=== PATIENT | female | born 1975 | race Caucasian/White ===

== ENCOUNTER → 2018-09-14 | Outpatient (CLI) | payer OTHER ==
--- NOTE | 2018-09-14 10:06 | RAD ---
Abdominal ultrasound, 09/14/2018: HISTORY: Nausea, vomiting, weight loss The gallbladder is within normal limits in size. There is no sonographic evidence of cholelithiasis. The common hepatic duct is of normal caliber. There is no evidence of a hepatic mass. The visualized portions of the pancreas, spleen and left kidney are unremarkable. There is slight prominence of the right renal pelvis without definite hydronephrosis. This can be seen after prior pregnancies. The abdominal aorta and inferior vena cava show no abnormality. No free fluid is evident in the pelvis. IMPRESSION: 1. Slight prominence of the right renal pelvis. 2. The abdominal ultrasound is otherwise unremarkable. Electronically signed by: Jon Thomas MD (09/14/2018 10:03 AM) [facility]
== END | disposition home or self-care (01) ==
LOC: US 09:00
PROVIDERS: ATTEND Family Medicine
DX: R10.30 Lower abdominal pain, unspecified (principal); R63.4 Abnormal weight loss; R11.2 Nausea with vomiting, unspecified
CPT/HCPCS: 76700

== ENCOUNTER → 2019-01-04 | Outpatient (CLI) | payer OTHER ==
--- NOTE | 2019-01-04 11:45 | RAD ---
Indication: Pelvic pain TECHNIQUE: Grayscale, color Doppler and spectral waveform images of the pelvis COMPARISON: None FINDINGS: Anteverted uterus measuring 6.6 x 1.7 x 3.2 cm. Endometrial stripe measures 2 mm in thickness and is within normal limits. Left ovary measures 2.7 x 2.1 x 3.4 cm with multiple follicles, dominant follicle or simple single septated cyst measuring 1.5 cm. The left ovary demonstrates blood flow. Right ovary measures 1.7 x 2.1 x 2.1 cm and shows blood flow. No free pelvic fluid. IMPRESSION: Dominant follicle or simple single septated left ovarian cyst (1.5 cm). Both ovaries show evidence of blood flow. Electronically signed by: Arpan Reno DO (01/04/2019 11:42 AM) [facility]
== END | disposition home or self-care (01) ==
LOC: US 08:52
PROVIDERS: ATTEND Family Medicine
DX: N83.202 Unspecified ovarian cyst, left side (principal)
CPT/HCPCS: 76830

== ENCOUNTER 2020-04-06 12:08 | Emergency (ER) | payer SELFPAY ==
[~2020-04-06] VITALS: Ht 165.1 cm; Wt 51.6 kg
--- NOTE | 2020-04-06 12:51 | PHYS DOC ---
General Adult EDM: Chief Complaint: ABDOMINAL PAIN HPI: HPI: 44-year-old female presents with abdominal pain. The patient has had abdominal pain since Monday. She is also had multiple episodes of vomiting. She is unable to keep down liquids or solids at this time. The pain in her abdomen has increased to be severe. She describes it as a constant cramping sensation. The patient has been having intermittent abdominal pain issues and has been seen by another physician. No conclusions have been drawn yet. She does have known peptic ulcer disease in the past. Colonoscopy from a year ago was reportedly negative. She denies fever or chills. Review of Systems: Review of Systems: Constitutional: Denies fever or chills Eyes: Denies change in visual acuity HENT: Denies nasal congestion or sore throat Respiratory: Denies cough or shortness of breath Cardiovascular: Denies chest pain or edema GI: abdominal pain, nausea, vomiting. Denies bloody stools or diarrhea. : Denies dysuria Musculoskeletal: Denies back pain or joint pain Integument: Denies rash Neurologic: Denies headache, focal weakness or sensory changes Endocrine: Denies polyuria or polydipsia Lymphatic: Denies swollen glands Psychiatric: Denies depression or anxiety Allergies: Allergies: Allergies Coded Allergies Type Severity Reaction Last Updated Verified verapamil Allergy Unknown 04/06/20 Yes Physical Exam: PE: Constitutional: Well developed, well nourished, no acute distress, non-toxic appearance. [] HENT: Normocephalic, atraumatic, bilateral external ears normal, oropharynx moist, no oral exudates, nose normal. [] Eyes: PERRLA, EOMI, conjunctiva normal, no discharge. [] Neck: Normal range of motion, no tenderness, supple, no stridor. [] Cardiovascular:Heart rate regular rhythm, no murmur [] Lungs & Thorax: Bilateral breath sounds clear to auscultation [] Abdomen: Bowel sounds normal, soft, left lower quadrant tenderness, no masses, no pulsatile masses. [] Skin: Warm, dry, no erythema, no rash. [] Back: No tenderness, no CVA tenderness. [] Extremities: No tenderness, no cyanosis, no clubbing, ROM intact, no edema. [] Neurologic: Alert and oriented X 3, normal motor function, normal sensory function, no focal deficits noted. [] Psychologic: Affect normal, judgement normal, mood normal. [] EKG: EKG: [] Radiology/Procedures: Radiology/Procedures: [] Impressions: CT abdomen and pelvis with contrast History: Left lower quadrant pain, diverticulitis Technique: After the administration of intravenous contrast, CT imaging was performed of the abdomen and pelvis. No oral contrast was given. Multiplanar images are reviewed. Exposure: One or more of the following individualized dose reduction techniques were utilized for this examination: 1. Automated exposure control 2. Adjustment of the mA and/or kV according to patient size 3. Use of iterative reconstruction technique. Comparison: None Findings: There is some motion degradation. There is no significant abnormality of the visualized lung bases. There is no significant abnormality of the liver, spleen, pancreas, adrenal glands. Both kidneys enhance without hydronephrosis. There are a couple of likely small calcifications of the right kidney about 2 to 3 mm. Gallbladder is present without obvious intraluminal abnormality by CT. Accurate evaluation of bowel is limited without oral contrast. There is no significant inflammatory change adjacent to the bowel. There is no evidence of bowel obstruction, free fluid, or free air. There is mild sigmoid diverticulosis, no convincing significant wall thickening. There is likely visualization of small caliber appendix, no significant pericecal inflammatory change. There is a hypodense left adnexal lesion about 1.2 cm in size with peripheral hyperdensity or enhancement. Impression: 1. There are couple of likely small right renal calculi. 2. Hypodense left adnexal lesion is most likely partially collapsed cyst unless clinical suspicion for tubo-ovarian abscess. 3. There is mild sigmoid diverticulosis. Electronically signed by: Shamar De La Torre MD (04/06/2020 1:22 PM) [facility] Exam: Ultrasound pelvis Indication: Possible cyst on CT Technique: Real-time grayscale and color Doppler images of the pelvis were obtained by the department supervisor pumping. Comparisons: CT same day FINDINGS: Uterus measures 4.5 x 3.7 x 2.5 cm. Endometrium is incompletely visualized on ultrasound. Right ovary measures 1.8 x 2.2 x 1.4 cm. Left ovary measures 3.6 x 2.9 x 2.8 cm. Within the left ovary there is a 1.4 cm cystic lesion may represent collapsing cyst. Vascular flow identified within the ovaries bilaterally. No free fluid. IMPRESSION: 1. Cystic lesion seen in the left adnexa on recent CT likely relates to a collapsing ovarian cyst. 2. Supervisor Shearing may note of tubular structures in the bilateral adnexa, may relate to reflection of the broad ligament. No free fluid is seen, and no correlate on recent CT to suggest pyosalpinx. Correlate with symptomatology and physical exam. Electronically signed by: Kellie Feng MD (04/06/2020 3:09 PM) [facility] DICTATED AND SIGNED BY: KELLIE FENG MD DATE: 04/06/20 1509 CC: ANTONIO STARK DO; PCP,NO ~ DICTATED AND SIGNED BY: SHAMAR DE LA TORRE MD DATE: 04/06/20 1322 CC: ANTONIO STARK DO; PCP,NO ~ Heart Score: Risk Factors: Risk Factors: DM, Current or recent (<one month) smoker, HTN, HLP, family history of CAD, obesity. Risk Scores: Score 0 - 3: 2.5% MACE over next 6 weeks - Discharge Home Score 4 - 6: 20.3% MACE over next 6 weeks - Admit for Clinical Observation Score 7 - 10: 72.7% MACE over next 6 weeks - Early Invasive Strategies Course & Med Decision Making: Course & Med Decision Making Pertinent Labs and Imaging studies reviewed. (See chart for details) The patient CT shows diverticulosis without diverticulitis. It also shows likel y involuting ovarian cyst. I will order pelvic ultrasound for clarification. The patient's labs are essentially unremarkable. She does have a low potassium of 3.3. See labs for more details. Her urine drug screen is positive for opiates benzodiazepines and marijuana. [] Dragon Disclaimer: Dragon Disclaimer: This electronic medical record was generated, in whole or in part, using a voice recognition dictation system. Departure Departure: Impression: Primary Impression: Abdominal pain Qualified Codes: R10.30 - Lower abdominal pain, unspecified Additional Impression: Ovarian cyst, left Disposition: 01 DC HOME SELF CARE/HOMELESS Condition: STABLE Referrals: PCP,SOFYA (PCP) Patient Instructions: Abdominal Pain, Women, Ovarian Cyst, [id number] ANTONIO STARK DO Apr 06, 2020 12:51
[2020-04-06] MEDS ORDERED: IOHEXOL 300 MG/ML 75 ML VIAL. IV ONE (13:00)
[2020-04-06] MEDS ORDERED: ONDANSETRON PF 4 MG/2 ML VIAL. IVP ONE (13:00)
[2020-04-06] MEDS ORDERED: MORPHINE SULFATE 2 MG/ML DISP.SYRIN. IV ONE (13:00)
[2020-04-06 13:04] LABS: BASO % 0 % (0-3); EOS % 0 % (0-3); HEMATOCRIT 45.1 % (36.0-47.0); HEMOGLOBIN 15.2 g/dL (12.0-15.5); LYMPH # 1.1 x10^3/uL (1.0-4.8); LYMPH % 16 % (24-48); MEAN CORPUSCULAR HEMOGLOBIN 31 pg (25-35); MEAN CORPUSCULAR HGB CONC 34 g/dL (31-37); MEAN CORPUSCULAR VOLUME 93 fL (79-100); MONO # 0.5 x10^3/uL (0.0-1.1); MONO % 7 % (0-9); NEUT # 5.3 x10^3uL (1.8-7.7); NEUT % 76 % (31-73); PLATELET COUNT 280 x10^3/uL (140-400); RED BLOOD COUNT 4.85 x10^6/uL (3.50-5.40); RED CELL DISTRIBUTION WIDTH 13.1 % (11.5-14.5)
[2020-04-06 13:10] LABS: CALCIUM 9.6 mg/dL (8.5-10.1); POTASSIUM 3.3 mmol/L (3.5-5.1)
[2020-04-06 13:16] LABS: ALBUMIN 4.7 g/dL (3.4-5.0); ALBUMIN/GLOBULIN RATIO 1.3 (1.0-1.7); TOTAL PROTEIN 8.3 g/dL (6.4-8.2)
--- NOTE | 2020-04-06 13:25 | RAD ---
CT abdomen and pelvis with contrast History: Left lower quadrant pain, diverticulitis Technique: After the administration of intravenous contrast, CT imaging was performed of the abdomen and pelvis. No oral contrast was given. Multiplanar images are reviewed. Exposure: One or more of the following individualized dose reduction techniques were utilized for this examination: 1. Automated exposure control 2. Adjustment of the mA and/or kV according to patient size 3. Use of iterative reconstruction technique. Comparison: None Findings: There is some motion degradation. There is no significant abnormality of the visualized lung bases. There is no significant abnormality of the liver, spleen, pancreas, adrenal glands. Both kidneys enhance without hydronephrosis. There are a couple of likely small calcifications of the right kidney about 2 to 3 mm. Gallbladder is present without obvious intraluminal abnormality by CT. Accurate evaluation of bowel is limited without oral contrast. There is no significant inflammatory change adjacent to the bowel. There is no evidence of bowel obstruction, free fluid, or free air. There is mild sigmoid diverticulosis, no convincing significant wall thickening. There is likely visualization of small caliber appendix, no significant pericecal inflammatory change. There is a hypodense left adnexal lesion about 1.2 cm in size with peripheral hyperdensity or enhancement. Impression: 1. There are couple of likely small right renal calculi. 2. Hypodense left adnexal lesion is most likely partially collapsed cyst unless clinical suspicion for tubo-ovarian abscess. 3. There is mild sigmoid diverticulosis. Electronically signed by: Nathan Cross MD (04/06/2020 1:22 PM) [facility]
[2020-04-06] MEDS ORDERED: MORPHINE SULFATE 4 MG/ML DISP.SYRIN. IV ONE (13:45)
[2020-04-06 13:48] LABS: BARBITURATES NEG (NEG); BENZODIAZEPINES POS (NEG); CANNABINOIDS POS (NEG); COCAINE NEG (NEG); METHADONE NEG (NEG); OPIATES POS (NEG); PHENCYCLIDINE NEG (NEG)
[2020-04-06 13:50] LABS: AMPHETAMINE/METHAMPHETAMINE NEG (NEG)
[2020-04-06 14:06] LABS: BILIRUBIN,URINE NEG (NEG); CLARITY,URINE CLEAR; COLOR,URINE YELLOW; GLUCOSE,URINE NEG (NEG)
[2020-04-06 14:07] LABS: BACTERIA,URINE FEW /HPF (0-FEW); NITRITE,URINE POS (NEG); SQUAMOUS EPITHELIAL CELL,UR MOD /LPF; UROBILINOGEN,URINE 0.2 mg/dL (0.2 mg/dL)
--- NOTE | 2020-04-06 15:12 | RAD ---
Exam: Ultrasound pelvis Indication: Possible cyst on CT Technique: Real-time grayscale and color Doppler images of the pelvis were obtained by the department electrical installation supervisor. Comparisons: CT same day FINDINGS: Uterus measures 4.5 x 3.7 x 2.5 cm. Endometrium is incompletely visualized on ultrasound. Right ovary measures 1.8 x 2.2 x 1.4 cm. Left ovary measures 3.6 x 2.9 x 2.8 cm. Within the left ovary there is a 1.4 cm cystic lesion may represent collapsing cyst. Vascular flow identified within the ovaries bilaterally. No free fluid. IMPRESSION: 1. Cystic lesion seen in the left adnexa on recent CT likely relates to a collapsing ovarian cyst. 2. Trade Mark Examiner may note of tubular structures in the bilateral adnexa, may relate to reflection of the broad ligament. No free fluid is seen, and no correlate on recent CT to suggest pyosalpinx. Correlate with symptomatology and physical exam. Electronically signed by: Kellie Cruz MD (04/06/2020 3:09 PM) [facility]
[2020-04-06] MEDS ORDERED: HYDR-3165 PO (15:28)
[2020-04-06] MEDS ORDERED: METOCLOPRAMIDE HCL 10 MG/2 ML VIAL. IVP ONE (15:45)
[2020-04-06] MEDS ORDERED: HYDROmorphone PF 1 MG/ML DISP.SYRIN IVP ONE (15:45)
[2020-04-06] MEDS ORDERED: diphenhydrAMINE 50 MG/ML VIAL IVP ONE (15:45)
[2020-04-06 16:08] VITALS: BP 120/71
== END 2020-04-06 16:15 | disposition home or self-care (01) ==
LOC: ER 12:08
DX: N83.202 Unspecified ovarian cyst, left side (principal); R11.2 Nausea with vomiting, unspecified; Z87.11 Personal history of peptic ulcer disease; Z88.8 Allergy status to other drugs, medicaments and biological substances
CPT/HCPCS: 36415; 74177; 76830; 76856; 80053; 80307; 81001; 81025; 83690; 85025; 87086; 96374; 96375; 96376; 99285; J1170; J1200; J2270; J2405; J2765; Q9967

== ENCOUNTER → 2021-08-05 | Outpatient (CLI) | payer BC ==
[~2021-08-05] MED LIST: HYDR-3165 PO
--- NOTE | 2021-08-05 11:54 | RAD ---
Bilateral digital screening mammogram (2-D): Reason for examination: Routine screening. Comparison: Mammogram from 03/02/2015. Interpretation was made with the benefit of CAD. FINDINGS: Breast density: Category C. There is heterogeneously dense fibroglandular tissue, which may obscure s mall masses. No suspicious breast mass, malignant appearing calcifications, or architectural distortion is seen. IMPRESSION: No evidence of malignancy. Recommend routine screening. Assessment: BI-RADS 1. Negative. Recommendation: Routine screening mammograms. Your patient's mammogram demonstrates that she has dense breast tissue (breast density category C or D), which could hide abnormalities, and if she has other risk factors for breast cancer that have bee n identified, she might benefit from supplemental screening tests that may be suggested by you as her ordering physician. Dense breast tissue, in and of itself, is a relatively common condition. Therefo re, this information is not provided to cause undue concern, but rather to raise your awareness and t o promote discussion with your patient regarding the presence of other risk factors, in addition to d ense breast tissue. This patient's information has been entered into a reminder system for the patient to be notified wit h the results of her examination by mail and a target date for the next mammogram. A reminder letter will be generated. Electronically signed by: Kelly Pressley MD (08/05/2021 11:52 AM) [id number]
== END ==
LOC: MAMMO 08:44
PROVIDERS: ATTEND Family Medicine
DX: Z12.31 Encounter for screening mammogram for malignant neoplasm of breast (principal)
CPT/HCPCS: 77067